=== PATIENT | male | born 1985 | race Caucasian/White ===

== ENCOUNTER 2016-11-22 20:00 | Emergency (ER) | payer MEDICAID ==
[~2016-11-22] VITALS: Ht 177.8 cm; Wt 92.0 kg
[2016-11-22 20:14] VITALS: Ht 177.8 cm; Wt 92.0 kg
[2016-11-22] MEDS ORDERED: IBUP-1542 PO (20:36)
[2016-11-22] MEDS ORDERED: NPH10OT RIGHT EAR (20:36)
--- NOTE | 2016-11-22 20:38 | ERD ---
ER Documentation Chief Complaint Date/Time DATE: 11/22/16 TIME: 20:37 Chief Complaint right earache x 1 day HPI This 31-year-old male presents with pain in his right ear for last day. Congestion, cough, history of trauma, bleeding . ROS All systems reviewed and are negative except as per history of present illness. Medications Home Meds Active Scripts Ibuprofen* (Motrin*) 600 Mg Tab, 600 MG PO Q6, #15 TAB Prov:MIREYA MCKEON MD 11/22/16 Neomycin/Polymyxin/Hydrocort* (Cortisporin* Otic) 10 Ml Susp, 4 DROP RIGHT EAR QID for 7 Days, EA Prov:MIERYA MCKEON MD 11/22/16 Allergies Allergies: Coded Allergies: Penicillins (Verified Allergy, Unknown, 11/22/16) Physical Exam Vitals Vital Signs Date Time Temp Pulse Resp B/P Pulse Ox O2 Delivery O2 Flow Rate FiO2 11/22/16 20:14 97.8 66 20 123/70 98 Physical Exam Const: [] Alert, [id number] per Head: Atraumatic Eyes: Normal Conjunctiva ENT: Normal External Ears, Nose and Mouth. There is some redness in the right external auditory canal. TM appears normal. There is some slight infra- auricular lymph node tenderness. There is no mastoid tenderness. Neck: Full range of motion..~ No meningismus. Resp: Clear to auscultation bilaterally Cardio: Regular rate and rhythm, no murmurs Abd: Soft, non tender, non distended. Normal bowel sounds Skin: No petechiae or rashes Back: No midline or flank tenderness Ext: No cyanosis, or edema Neur: Awake and alert Psych: Normal Mood and Affect Procedures/MDM Patient presents with right ear pain and signs of mild otitis externa. There is no evidence of mastoiditis, cellulitis, additional ear complications. Treated with Cortisporin ibuprofen. The patient was stable with no new complaints during the ER course. Clinically, there is no current evidence to suggest meningitis, sepsis, acute abdomen, pneumonia, acute coronary syndrome, pulmonary embolism, or any other emergent condition appearing to require further evaluation or hospitalization. The patient should certainly return for any new or worsening symptoms per the aftercare instructions. They should otherwise follow-up with her primary care doctor for reevaluation this week. Departure Diagnosis: Primary Impression: Right ear pain Condition: Stable Patient Instructions: External Ear Infection (Adult) Additional Instructions: Recheck for new or worsening symptoms or with primary care doctor. MIREYA MCKEON MD Nov 22, 2016 20:38
== END 2016-11-22 21:04 | disposition home or self-care (01) ==
LOC: FTE 20:00
DX: H92.01 Otalgia, right ear (principal)
CPT/HCPCS: 99283

== ENCOUNTER 2017-01-06 21:40 | Emergency (ER) | payer MEDICAID ==
[~2017-01-06] VITALS: Ht 172.7 cm; Wt 92.5 kg
[~2017-01-06 21:40] MED LIST: IBUP-1542 PO; NPH10OT RIGHT EAR
[2017-01-06 21:44] VITALS: Ht 172.7 cm; Wt 92.5 kg
--- NOTE | 2017-01-06 23:25 | ERD ---
ER Documentation Chief Complaint Date/Time DATE: 01/06/17 TIME: 23:24 Chief Complaint cough x 5 weeks HPI This is a 31-year-old male presents to the ER with a cough for the last 5 weeks. Patient states that cough started out as a dry cough. He developed fever and flulike symptoms. Fever and flulike symptoms have not resolved however patient still has a lingering cough. Patient denies to yellow and blood tinged sputum. He denies any chest pain or shortness of breath. Patient states that cough is normal on him to sleep at night, cough is worse at night. He denies any history of asthma. He does not have any wheezing. Patient has tried [id number] medication however has not worked. ROS 12 point review of systems was done, all negative except per HPI. Medications Home Meds Active Scripts Dextromethorphan Hb-Promethazine Hcl (Promethazine DM Syrup) 473 Ml Syrup, 10 ML PO Q6H Y for COUGH, #4 OZ Prov:ANNALEE EID 01/07/17 Albuterol Sulfate* (Proair HFA*) 8.5 Gm Hfa.aer.ad, 2 PUFF INH Q4, #1 INHALER Prov:ANNALEE EID 01/07/17 Methylprednisolone* (Medrol* DOSE PACK) 4 Mg/Dose-Pack Tab.ds.pk, 4 MG PO . DIRECTED for 6 Days, PACKET Prov:RAGINIANNALEE Alves 01/07/17 Ibuprofen* (Motrin*) 600 Mg Tab, 600 MG PO Q6, #15 TAB Prov:MIREYA MCKEON MD 11/22/16 Neomycin/Polymyxin/Hydrocort* (Cortisporin* Otic) 10 Ml Susp, 4 DROP RIGHT EAR QID for 7 Days, EA Prov:MIREYA MCKEON MD 11/22/16 Allergies Allergies: Coded Allergies: Penicillins (Verified Allergy, Unknown, 11/22/16) PMhx/Soc Medical and Surgical Hx: pt denies Medical Hx, pt denies Surgical Hx History of Surgery: No Anesthesia Reaction: No Hx Neurological Disorder: No Hx Respiratory Disorders: No Hx Cardiac Disorders: No Hx Psychiatric Problems: No Hx Miscellaneous Medical Probl: No (PT. DENIES MEDICAL AND SURGICAL HX.) Hx Alcohol Use: Yes (OCC) Hx Substance Use: No Smoking Status: Never smoker Physical Exam Vitals Vital Signs Date Time Temp Pulse Resp B/P Pulse Ox O2 Delivery O2 Flow Rate FiO2 01/06/17 21:44 98.3 89 20 120/75 100 Physical Exam GENERAL: The patient is well-developed, well-nourished, in no acute distress. NECK: Cervical spine is non tender with no step off. Supple, no nuchal rigidity HEENT: Atraumatic. Pupils equal, round and reactive to light. Extraocular muscles are grossly intact. Conjunctivae pink, no discharge. Bilateral tympanic membranes are clear with no evidence of erythema, effusion or dulling of the light reflex. Tonsilar erythema with no exudates or uvular deviation. Clear rhinorrhea. RESPIRATORY: Clear to auscultation bilaterally. There are no rales, wheezes or rhonchi. HEART: Regular rate and rhythm. No murmurs, clicks, rubs or gallops. EXTREMITIES: No clubbing or cyanosis. Full range of motion. Grossly neurovascularly intact. NEUROLOGIC: Alert and oriented. Cranial nerves II through XII are intact. SKIN: There is no rash. The skin is warm and dry. Procedures/MDM Differential diagnosis includes but is not limited to; Viral URI, allergic rhinitis, bronchitis, pertussis,pneumonia. This is likely viral in etiology, could possibly be bronchitis. Clinical suspicion for pneumonia is low as patient appears well, is not hypoxic or in any respiratory distress. Additionally, patients physical examination is benign. Plan was discussed with patient they understand and agree. Patient needs to follow up with PCP in 1-2 days or return to ER sooner if symptoms worsen. Departure Diagnosis: Primary Impression: Bronchitis Condition: Stable ANNALEE EID Jan 06, 2017 23:25
--- NOTE | 2017-01-06 23:51 | RADRPT ---
PROCEDURE: XR Chest. CLINICAL INDICATION: Cough. TECHNIQUE: Single frontal chest x-ray. COMPARISON: None available. FINDINGS: The cardiomediastinal silhouette is unremarkable. No pneumothorax, pleural effusion or consolidation is seen. No acute osseous abnormality is noted. IMPRESSION: 1. No acute cardiopulmonary abnormality. RPTAT: HFN .Deanna Almendarez MD, Date Time Electronically viewed and signed by .Deanna Almendarez MD, on 01/06/2017 23:50 .N/
[2017-01-07] MEDS ORDERED: MED4DP PO (00:03)
[2017-01-07] MEDS ORDERED: D-ME473S18 PO (00:04)
[2017-01-07] MEDS ORDERED: ALBU8.5H3 INH (00:04)
== END 2017-01-07 00:17 | disposition home or self-care (01) ==
LOC: FTE 21:40
DX: J40 Bronchitis, not specified as acute or chronic (principal)
CPT/HCPCS: 71010; Z7502